=== PATIENT | female | born 2000 | race Caucasian/White ===

== ENCOUNTER 2018-12-05 21:17 | Emergency (ER) | payer SELFPAY ==
[2018-12-05] MEDS ORDERED: Ondansetron 4 MG/2 ML SDV ONE (21:42)
[2018-12-05] MEDS ORDERED: Sodium Chloride 0.9% 1,000 ML IV ONE ×2 (21:45→21:46)
[2018-12-05] MEDS ORDERED: Ondansetron 4 MG/2 ML SDV IVPUSH ONE (21:46)
--- NOTE | 2018-12-05 22:16 | EDM.PDOC ---
ED HPI GENERAL MEDICAL PROBLEM - General Chief Complaint: SHOE WORKER Problem Stated Complaint: VOMITING Time Seen by Provider: 12/05/18 21:39 - History of Present Illness INITIAL COMMENTS - FREE TEXT/NARRATIVE: HISTORY AND PHYSICAL: History of present illness: Patient's a 18-year-old white female with a history of 9 week IUP who presents with concern of vomiting and dehydration patient had hyperemesis gravidarum with earlier and states this is similar in nature she had no vaginal bleeding abdominal pain or cramping or other complaints. Review of systems: As per history of present illness and below otherwise all systems reviewed and negative. Past medical history: As per history of present illness and as reviewed below otherwise noncontributory. Surgical history: As per history of present illness and as reviewed below otherwise noncontributory. Social history: No reported history of drug or alcohol abuse. Family history: As per history of present illness and as reviewed below otherwise noncontributory. Physical exam: HEENT: Atraumatic, normocephalic, pupils reactive, negative for conjunctival pallor or scleral icterus, mucous membranes dry, throat clear, neck supple, nontender, trachea midline. Lungs: Clear to auscultation, breath sounds equal bilaterally, chest nontender. Heart: S1S2, regular, negative for clicks, rubs, or JVD. Abdomen: Soft, nondistended, nontender. Negative for masses or hepatosplenomegaly. Negative for costovertebral tenderness. Pelvis: Stable nontender. Genitourinary: Deferred. Rectal: Deferred. Extremities: Atraumatic, negative for cords or calf pain. Neurovascular unremarkable. Neuro: Awake, alert, oriented. Cranial nerves II through XII unremarkable. Cerebellum unremarkable. Motor and sensory unremarkable throughout. Exam nonfocal. Diagnostics: CBC CMP Therapeutics: Saline 2 L bolus Zofran 4 mg IV Impression: #1 hyperemesis gravidarum with dehydration Definitive disposition and diagnosis as appropriate pending reevaluation and review of above. - Related Data Allergies Allergy/AdvReac Type Severity Reaction Status Date / Time cephalexin [From Keflex] Allergy Syncope Verified 12/05/18 21:28 Home Meds: Home Meds . [No Known Home Meds] 12/05/18 [History] Past Medical History HEENT History: Reports: None Cardiovascular History: Reports: None Respiratory History: Reports: None Gastrointestinal History: Reports: Other (See Below) Other Gastrointestinal History: gastroparesis SHOE WORKER History: Reports: Other SHOE WORKER History: Musculoskeletal History: Reports: Fracture Psychiatric History: Reports: Anxiety, Depression - Past Surgical History GI Surgical History: Reports: Cholecystectomy, Colonoscopy, EGD Social & Family History - Tobacco Use Smoking Status *Q: Never Smoker - Recreational Drug Use Recreational Drug Use: No ED ROS GENERAL - Review of Systems Review Of Systems: ROS reveals no pertinent complaints other than HPI. ED EXAM, GENERAL - Physical Exam Exam: See Below (The dictation) Course - Vital Signs Last Recorded V/S: Last Vital Signs Temp 36.3 C 12/05/18 22:00 Pulse 70 12/05/18 22:34 Resp 18 12/05/18 22:34 BP 104/45 L 12/05/18 22:34 Pulse Ox 100 12/05/18 22:00 - Orders/Labs/Meds Labs: Laboratory Tests 12/05/18 12/05/18 Range/Units 21:40 21:40 WBC 14.18 H (4.0-11.0) K/uL RBC 5.36 (4.30-5.90) M/uL Hgb 16.2 H (12.0-16.0) g/dL Hct 45.0 (36.0-46.0) % MCV 84.0 (80.0-98.0) fL MCH 30.2 (27.0-32.0) pg MCHC 36.0 (31.0-37.0) g/dL RDW Std Deviation 37.8 (28.0-62.0) fl RDW Coeff of Lesley 13 (11.0-15.0) % Plt Count 336 (150-400) K/uL MPV 10.30 (7.40-12.00) fL Neut % (Auto) 65.2 (48.0-80.0) % Lymph % (Auto) 26.2 (16.0-40.0) % [place] % (Auto) 8.2 (0.0-15.0) % Eos % (Auto) 0.1 (0.0-7.0) % Baso % (Auto) 0.3 (0.0-1.5) % Neut # (Auto) 9.3 H (1.4-5.7) K/uL Lymph # (Auto) 3.7 H (0.6-2.4) K/uL [place] # (Auto) 1.2 H (0.0-0.8) K/uL Eos # (Auto) 0.0 (0.0-0.7) K/uL Baso # (Auto) 0.0 (0.0-0.1) K/uL Nucleated RBC % 0.0 /100WBC Nucleated RBCs # 0 K/uL Sodium 135 L (136-145) mmol/L Potassium 3.3 L (3.5-5.1) mmol/L Chloride 100 (98-107) mmol/L Carbon Dioxide 20.9 L (21.0-32.0) mmol/L BUN 8 (7.0-18.0) mg/dL Creatinine 0.7 (0.6-1.0) mg/dL Est Cr Clr Drug Dosing 101.39 mL/min Estimated GFR (MDRD) > 60.0 ml/min Glucose 79 (74-106) mg/dL Calcium 10.1 (8.5-10.1) mg/dL Total Bilirubin 0.5 (0.2-1.0) mg/dL AST 13 L (15-37) IU/L ALT 11 L (14-63) IU/L Alkaline Phosphatase 98 (46-116) U/L Total Protein 8.6 H (6.4-8.2) g/dL Albumin 4.1 (3.4-5.0) g/dL Globulin 4.5 H (2.6-4.0) g/dL Albumin/Globulin Ratio 0.9 (0.9-1.6) Meds: Medications Discontinued Medications Generic Name Dose Route Start Last Admin Trade Name Freq PRN Reason Stop Dose Admin Sodium Chloride 1,000 mls @ 999 mls/hr 12/05/18 21:45 12/05/18 21:50 Normal Saline IV 12/05/18 22:45 999 mls/hr STAT ONE Administration Sodium Chloride 1,000 mls @ 999 mls/hr 12/05/18 21:46 12/05/18 22:32 Normal Saline IV 12/05/18 22:46 999 mls/hr STAT ONE Administration Ondansetron HCl Confirm 12/05/18 21:42 12/05/18 21:57 Zofran Administered 12/05/18 21:43 Not Given Dose 4 mg .ROUTE .STK-MED ONE Ondansetron HCl 4 mg 12/05/18 21:46 12/05/18 21:51 Zofran IVPUSH 12/05/18 21:47 4 mg ONETIME ONE Administration Departure - Departure Time of Disposition: 23:04 Disposition: Home, Self-Care 01 Condition: Good Clinical Impression: Hyperemesis gravidarum, Dehydration - Discharge Information Referrals: PCP,None [Primary Care Provider] - Forms: ED Department Discharge Additional Instructions: The following information is given to patients seen in the emergency department who are being discharged to home. This information is to outline your options for follow-up care. We provide all patients seen in our emergency department with a follow-up referral. The need for follow-up, as well as the timing and circumstances, are variable depending upon the specifics of your emergency department visit. If you don't have a primary care physician on staff, we will provide you with a referral. We always advise you to contact your personal physician following an emergency department visit to inform them of the circumstance of the visit and for follow-up with them and/or the need for any referrals to a consulting specialist. The emergency department will also refer you to a specialist when appropriate. This referral assures that you have the opportunity for followup care with a specialist. All of these measure are taken in an effort to provide you with optimal care, which includes your followup. Under all circumstances we always encourage you to contact your private physician who remains a resource for coordinating your care. When calling for followup care, please make the office aware that this follow-up is from your recent emergency room visit. If for any reason you are refused follow-up, please contact the [facility] emergency department at and asked to speak to the emergency department charge nurse. 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
[2018-12-05 22:34] LABS: CHLORIDE,CL 100 mmol/L (98-107); SODIUM,NA 135 mmol/L (136-145)
== END 2018-12-05 23:45 | disposition home or self-care (01) ==
LOC: MW.ED 21:17
DX: O21.1 Hyperemesis gravidarum with metabolic disturbance (principal); Z3A.09 9 weeks gestation of pregnancy; Z88.1 Allergy status to other antibiotic agents
CPT/HCPCS: 36415; 80053; 85025; 96361; 96374; 99284; J2405; J7040; 99283

== ENCOUNTER 2019-01-20 16:55 | Emergency (ER) | payer MEDICAID ==
[2019-01-20] MEDS ORDERED: Sodium Chloride 0.9% 1,000 ML IV ONE (17:22)
[2019-01-20] MEDS ORDERED: Ondansetron 4 MG/2 ML SDV IVPUSH ONE (17:22)
--- NOTE | 2019-01-20 17:27 | EDM.PDOC ---
ED HPI GENERAL MEDICAL PROBLEM - General Chief Complaint: Abdominal Pain Stated Complaint: VOMITING Time Seen by Provider: 01/20/19 16:56 Source of Information: Reports: Patient History Limitations: Reports: No Limitations - History of Present Illness INITIAL COMMENTS - FREE TEXT/NARRATIVE: HISTORY AND PHYSICAL: History of present illness: Patient is a 18-year-old female who presents to the emergency room with complaints of nausea and vomiting in . She states she is approximately 15 weeks gestation and has had problems with nausea and vomiting. She states she was seen in the emergency room a few weeks ago and given IV fluids and Zofran. She had a prescription for Zofran but had concerns of constipation associated with this. She had a new prescription, but doesn't recall the name of the antinausea medication, nor has she had this medication filled yet. She has had mild nausea which was exacerbated after she had a massage yesterday. Today she had multiple bouts of vomiting and concerned of dehydration. She denies any fever, chills, chest pain, shortness of breath or cough. Denies any abdominal pain, abdominal cramping, vaginal bleeding or discharge. Denies any constipation, diarrhea or dysuria. Last menstrual period November 2018. 2, para 1. Dr. Alvarado is her primary SOCIAL SERVICE WORKER Review of systems: As per history of present illness and below otherwise all systems reviewed and negative. Past medical history: As per history of present illness and as reviewed below otherwise noncontributory. Surgical history: As per history of present illness and as reviewed below otherwise noncontributory. Social history: See social history for further information Family history: As per history of present illness and as reviewed below otherwise noncontributory. Physical exam: General: Well-developed and well-nourished 18-year-old female. Alert and oriented. Nontoxic appearing and in no acute distress. HEENT: Atraumatic, normocephalic, pupils equal and reactive bilaterally, negative for conjunctival pallor or scleral icterus, mucous membranes moist, TMs normal bilaterally, throat clear, neck supple, nontender, trachea midline. No drooling or trismus noted. No meningeal signs. No hot potato voice noted. Lungs: Clear to auscultation, breath sounds equal bilaterally, chest nontender. Heart: S1S2, regular rate and rhythm without overt murmur Abdomen: Soft, nondistended, nontender. Negative for masses or hepatosplenomegaly. Negative for costovertebral tenderness. Pelvis: Stable nontender. Genitourinary: Deferred. Rectal: Deferred. Skin: Intact, warm, dry. No lesions or rashes noted. Extremities: Atraumatic, negative for cords or calf pain. Neurovascular unremarkable. Neuro: Awake, alert, oriented. Cranial nerves II through XII unremarkable. Cerebellum unremarkable. Motor and sensory unremarkable throughout. Exam nonfocal. Notes: No acute findings on lab work. Patient does feel improved after her IV fluids and Zofran. She states she has prescriptions for antinausea medication but has yet filled them or use them at home. Supportive care measures were reviewed and discussed. Voices understanding and is agreeable to plan of care. Denies any further questions or concerns at this time. Diagnostics: CBC, CMP, UA Therapeutics: IV fluid, Zofran Prescription: Macrodantin Impression: Hyperemesis UTI Plan: 1. Small frequent amounts of fluids and small meals throughout the day. 2. Use your Zofran and/or other anti-nausea mediation as needed and as discussed 3. Follow up with Dr Alvarado as needed and as we discussed. 4. Return to the ED as needed and as discussed. Definitive disposition and diagnosis as appropriate pending reevaluation and review of above. Duration: Day(s): no pain Pain Score (Numeric/FACES): 0 - Related Data Allergies Allergy/AdvReac Type Severity Reaction Status Date / Time cephalexin [From Keflex] Allergy Syncope Verified 01/20/19 17:08 Home Meds: Home Meds Nitrofurantoin Macrocrystal [Macrodantin] 100 mg PO BID 7 Days #14 capsule 01/20 [Rx] Rtx429/FA/Omega3/Dha/Fish Oil [ Gummies] 1 tab 01/20/19 [History] Past Medical History HEENT History: Reports: None Cardiovascular History: Reports: None Respiratory History: Reports: None Gastrointestinal History: Reports: Other (See Below) Other Gastrointestinal History: gastroparesis SOCIAL SERVICE WORKER History: Reports: Other SOCIAL SERVICE WORKER History: Musculoskeletal History: Reports: Fracture Neurological History: Reports: None Psychiatric History: Reports: Anxiety, Depression Endocrine/Metabolic History: Reports: None Dermatologic History: Reports: None - Infectious Disease History Infectious Disease History: Reports: None - Past Surgical History GI Surgical History: Reports: Cholecystectomy, Colonoscopy, EGD Social & Family History - Family History Family Medical History: Noncontributory - Tobacco Use Smoking Status *Q: Never Smoker - Recreational Drug Use Recreational Drug Use: No ED ROS GENERAL - Review of Systems Review Of Systems: ROS reveals no pertinent complaints other than HPI. ED EXAM, GI/ABD - Physical Exam Exam: See Below (See dictation) Course - Vital Signs Last Recorded V/S: Last Vital Signs Temp 96.6 F 01/20/19 18:31 Pulse 80 01/20/19 18:31 Resp 14 01/20/19 18:31 BP 104/60 01/20/19 18:31 Pulse Ox 96 01/20/19 18:31 - Orders/Labs/Meds Labs: Laboratory Tests 01/20/19 01/20/19 01/20/19 Range/Units 17:14 17:14 17:15 WBC 13.25 H (4.0-11.0) K/uL RBC 4.81 (4.30-5.90) M/uL Hgb 14.5 (12.0-16.0) g/dL Hct 40.9 (36.0-46.0) % MCV 85.0 (80.0-98.0) fL MCH 30.1 (27.0-32.0) pg MCHC 35.5 (31.0-37.0) g/dL RDW Std Deviation 40.5 (28.0-62.0) fl RDW Coeff of Lesley 13 (11.0-15.0) % Plt Count 283 (150-400) K/uL MPV 10.50 (7.40-12.00) fL Neut % (Auto) 77.9 (48.0-80.0) % Lymph % (Auto) 17.9 (16.0-40.0) % [place] % (Auto) 4.0 (0.0-15.0) % Eos % (Auto) 0.1 (0.0-7.0) % Baso % (Auto) 0.1 (0.0-1.5) % Neut # (Auto) 10.3 H (1.4-5.7) K/uL Lymph # (Auto) 2.4 (0.6-2.4) K/uL [place] # (Auto) 0.5 (0.0-0.8) K/uL Eos # (Auto) 0.0 (0.0-0.7) K/uL Baso # (Auto) 0.0 (0.0-0.1) K/uL Nucleated RBC % 0.0 /100WBC Nucleated RBCs # 0 K/uL Sodium 134 L (136-145) mmol/L Potassium 3.5 (3.5-5.1) mmol/L Chloride 100 (98-107) mmol/L Carbon Dioxide 17.1 L (21.0-32.0) mmol/L BUN 7 (7.0-18.0) mg/dL Creatinine 0.6 (0.6-1.0) mg/dL Est Cr Clr Drug Dosing 118.29 mL/min Estimated GFR (MDRD) > 60.0 ml/min Glucose 82 (74-106) mg/dL Calcium 9.4 (8.5-10.1) mg/dL Total Bilirubin 0.6 (0.2-1.0) mg/dL AST 17 (15-37) IU/L ALT 17 (14-63) IU/L Alkaline Phosphatase 85 (46-116) U/L Total Protein 7.7 (6.4-8.2) g/dL Albumin 3.3 L (3.4-5.0) g/dL Globulin 4.4 H (2.6-4.0) g/dL Albumin/Globulin Ratio 0.8 L (0.9-1.6) Lipase 118 (73-393) U/L Urine Color YELLOW Urine Appearance HAZY Urine pH 6.0 (5.0-8.0) Ur Specific Chauncey >= 1.030 (1.001-1.035) Urine Protein TRACE H (NEGATIVE) mg/dL Urine Glucose (UA) NEGATIVE (NEGATIVE) mg/dL Urine Ketones >=80 (NEGATIVE) mg/dL Urine Occult Blood NEGATIVE (NEGATIVE) Urine Nitrite NEGATIVE (NEGATIVE) Urine Bilirubin SMALL H (NEGATIVE) Urine Urobilinogen 0.2 (<2.0) EU/dL Ur Leukocyte Esterase NEGATIVE (NEGATIVE) Urine RBC 0-2 (0-2/HPF) Urine WBC 2-4 (0-5/HPF) Ur Epithelial Cells MODERATE (NONE-FEW) Urine Bacteria 1+ H (NEGATIVE) Meds: Medications Discontinued Medications Generic Name Dose Route Start Last Admin Trade Name Kye PRN Reason Stop Dose Admin Sodium Chloride 1,000 mls @ 999 mls/hr 01/20/19 17:22 01/20/19 17:34 Normal Saline IV 01/20/19 18:22 999 mls/hr STAT ONE Administration Ondansetron HCl 4 mg 01/20/19 17:22 01/20/19 17:37 Zofran IVPUSH 01/20/19 17:23 4 mg ONETIME ONE Administration Departure - Departure Time of Disposition: 18:46 Disposition: Home, Self-Care 01 Clinical Impression: Hyperemesis gravidarum UTI (urinary tract infection) Qualifiers: Urinary tract infection type: site unspecified Hematuria presence: without hematuria Qualified Code(s): N39.0 - Urinary tract infection, site not specified - Discharge Information Prescriptions: Nitrofurantoin Macrocrystal [Macrodantin] 100 mg PO BID 7 Days #14 capsule Instructions: Hyperemesis Gravidarum, Urinary Tract Infection, Adult, Easy-to- Read Referrals: PCP,None [Primary Care Provider] - Forms: ED Department Discharge Additional Instructions: The following information is given to patients seen in the emergency department who are being discharged to home. This information is to outline your options for follow-up care. We provide all patients seen in our emergency department with a follow-up referral. The need for follow-up, as well as the timing and circumstances, are variable depending upon the specifics of your emergency department visit. If you don't have a primary care physician on staff, we will provide you with a referral. We always advise you to contact your personal physician following an emergency department visit to inform them of the circumstance of the visit and for follow-up with them and/or the need for any referrals to a consulting specialist. The emergency department will also refer you to a specialist when appropriate. This referral assures that you have the opportunity for follow-up care with a specialist. All of these measure are taken in an effort to provide you with optimal care, which includes your follow-up. Under all circumstances we always encourage you to contact your private physician who remains a resource for coordinating your care. When calling for follow-up care, please make the office aware that this follow-up is from your recent emergency room visit. If for any reason you are refused follow-up, please contact the [facility] Emergency Department at and asked to speak to the emergency department charge nurse. [facility] [address], [place] [address] [facility] [address] [place] [id number] [facility] [address] [place] [address] 1. Small frequent amounts of fluids and small meals throughout the day. 2. Use your Zofran and/or other anti-nausea mediation as needed and as discussed 3. Follow up with Dr Alvarado as needed and as we discussed. 4. Return to the ED as needed and as discussed.
[2019-01-20 17:49] LABS: CHLORIDE,CL 100 mmol/L (98-107); SODIUM,NA 134 mmol/L (136-145)
== END 2019-01-20 18:55 | disposition home or self-care (01) ==
LOC: MW.ED 16:55
DX: O23.42 Unspecified infection of urinary tract in pregnancy, second trimester (principal); O21.9 Vomiting of pregnancy, unspecified; Z3A.15 15 weeks gestation of pregnancy
CPT/HCPCS: 36415; 80053; 81001; 83690; 85025; 96361; 96374; 99284; J2405; J7040; 99283

== ENCOUNTER 2019-01-22 12:47 | Emergency (ER) | payer MEDICAID ==
[2019-01-22] MEDS ORDERED: Ondansetron 4 MG/2 ML SDV IVPUSH ONE (12:51)
[2019-01-22] MEDS ORDERED: Sodium Chloride 0.9% 1,000 ML IV ONE (12:51)
--- NOTE | 2019-01-22 12:51 | EDM.PDOC ---
ED HPI GENERAL MEDICAL PROBLEM - General Stated Complaint: VOMITING Time Seen by Provider: 01/22/19 12:51 Source of Information: Reports: Patient History Limitations: Reports: No Limitations - History of Present Illness INITIAL COMMENTS - FREE TEXT/NARRATIVE: HISTORY AND PHYSICAL: History of present illness: Patient is a 18-year-old female who presents to the emergency room with complaints of nausea and vomiting in . She is approximately 15 weeks gestation and has had problems with hyperemesis. She has been seen in the emergency room for this complaint a few times over the past several weeks. She does have a prescription for Zofran that had some concerns of constipation associated with this, therefore did not fill or take this. She also has a new prescription for an antinausea medication, but is unsure of the name of this nor has she filled this prescription yet. Patient was seen in our emergency room for this complaint on 01/20/19. At that time she received IV fluids and Zofran. She states she was surprised she did have a bowel movement after the IV Zofran. She was concerned that she thought the stool appeared dark in color. She denies any fever, chills, chest pain, shortness of breath or cough. She denies any abdominal pain/cramping, vaginal bleeding or discharge. Denies any constipation, diarrhea or dysuria. Last menstrual period November 2018. 2, para 1. Dr. [place] is her primary RIDING COACH. Review of systems: As per history of present illness and below otherwise all systems reviewed and negative. Past medical history: As per history of present illness and as reviewed below otherwise noncontributory. Surgical history: As per history of present illness and as reviewed below otherwise noncontributory. Social history: See social history for further information Family history: As per history of present illness and as reviewed below otherwise noncontributory. Physical exam: General: Well-developed and well-nourished 18-year-old female. Alert and oriented. Nontoxic appearing and in no acute distress. HEENT: Atraumatic, normocephalic, pupils equal and reactive bilaterally, negative for conjunctival pallor or scleral icterus, mucous membranes moist, TMs normal bilaterally, throat clear, neck supple, nontender, trachea midline. No drooling or trismus noted. No meningeal signs. No hot potato voice noted. Lungs: Clear to auscultation, breath sounds equal bilaterally, chest nontender. Heart: S1S2, regular rate and rhythm without overt murmur Abdomen: Soft, nondistended, nontender. Negative for masses or hepatosplenomegaly. Negative for costovertebral tenderness. Pelvis: Stable nontender. Genitourinary: Deferred. Rectal: This was done with consent and a senior geologist at the bedside. No internal or external hemorrhoids noted. Hemoccult negative. Good rectal tone. Skin: Intact, warm, dry. No lesions or rashes noted. Extremities: Atraumatic, negative for cords or calf pain. Neurovascular unremarkable. Neuro: Awake, alert, oriented. Cranial nerves II through XII unremarkable. Cerebellum unremarkable. Motor and sensory unremarkable throughout. Exam nonfocal. Notes: The patient was seen on 01/20/19 she did have a UTI and was prescribed Macrodantin. Patient reports that she hasn't filled this medication because she hasn't gotten around to going to the pharmacy. She also hasn't picked up her nausea mediations that were prescribed for the same reason. Will prescribe these through [facility]. We discussed the need for compliance with these medications. Encouraged her to follow up with her RIDING COACH. Supportive care measures were reviewed and discussed. Voices understanding and is agreeable to plan of care. Denies any further questions or concerns at this time. Diagnostics: CBC, CMP, Hemoccult stool Therapeutics: IV fluid, Zofran Prescription: Zofran Impression: Hyperemesis graviderum Medication non-compliance Plan: 1. Please go to the pharmacy to orange picker machine operator your antibiotic prescription for your UTI. 2. Use the Zofran as directed. May want to start a daily stool softener if youre concerned of constipation. Increase your water intake to prevent dehydration. 3. Follow up with your OBGYN as we discussed 4. Return to the ED as needed and as discussed. Definitive disposition and diagnosis as appropriate pending reevaluation and review of above. Abdomen Pain Score (Numeric/FACES): 6 - Related Data Allergies Allergy/AdvReac Type Severity Reaction Status Date / Time cephalexin [From Keflex] Allergy Syncope Verified 01/22/19 13:03 Home Meds: Home Meds Nitrofurantoin Macrocrystal [Macrodantin] 100 mg PO BID 7 Days #14 capsule 01/20 [Rx] [id number]/FA/Omega3/Dha/Fish Oil [ Gummies] 1 tab 01/20/19 [History] Past Medical History HEENT History: Reports: None Cardiovascular History: Reports: None Respiratory History: Reports: None Gastrointestinal History: Reports: Other (See Below) Other Gastrointestinal History: gastroparesis RIDING COACH History: Reports: Other RIDING COACH History: Musculoskeletal History: Reports: Fracture Neurological History: Reports: None Psychiatric History: Reports: Anxiety, Depression Endocrine/Metabolic History: Reports: None Dermatologic History: Reports: None - Infectious Disease History Infectious Disease History: Reports: None - Past Surgical History GI Surgical History: Reports: Cholecystectomy, Colonoscopy, EGD Social & Family History - Family History Family Medical History: Noncontributory ED ROS GENERAL - Review of Systems Review Of Systems: ROS reveals no pertinent complaints other than HPI. ED EXAM - Physical Exam Exam: See Below (See dictation) Course - Vital Signs Last Recorded V/S: Last Vital Signs Temp 97.7 F 01/22/19 13:04 Pulse 114 H 01/22/19 13:04 Resp 16 01/22/19 13:04 BP 120/80 01/22/19 13:04 Pulse Ox 97 01/22/19 13:04 - Orders/Labs/Meds Orders: Active Orders 24 hr Category Date Time Status Communication Order [RC] STAT Care 01/22/19 12:54 Active Hemoccult [Fecal Occult Blood Collection] [RC] Care 01/22/19 13:18 Active ASDIRECTED Labs: Laboratory Tests 01/22/19 01/22/19 Range/Units 13:01 13:01 WBC 12.91 H (4.0-11.0) K/uL RBC 5.27 (4.30-5.90) M/uL Hgb 15.9 (12.0-16.0) g/dL Hct 44.5 (36.0-46.0) % MCV 84.4 (80.0-98.0) fL MCH 30.2 (27.0-32.0) pg MCHC 35.7 (31.0-37.0) g/dL RDW Std Deviation 40.8 (28.0-62.0) fl RDW Coeff of Lesley 14 (11.0-15.0) % Plt Count 319 (150-400) K/uL MPV 10.50 (7.40-12.00) fL Neut % (Auto) 73.6 (48.0-80.0) % Lymph % (Auto) 20.3 (16.0-40.0) % [place] % (Auto) 5.8 (0.0-15.0) % Eos % (Auto) 0.1 (0.0-7.0) % Baso % (Auto) 0.2 (0.0-1.5) % Neut # (Auto) 9.5 H (1.4-5.7) K/uL Lymph # (Auto) 2.6 H (0.6-2.4) K/uL [place] # (Auto) 0.8 (0.0-0.8) K/uL Eos # (Auto) 0.0 (0.0-0.7) K/uL Baso # (Auto) 0.0 (0.0-0.1) K/uL Nucleated RBC % 0.0 /100WBC Nucleated RBCs # 0 K/uL Sodium 133 L (136-145) mmol/L Potassium 4.0 (3.5-5.1) mmol/L Chloride 100 (98-107) mmol/L Carbon Dioxide 14.8 L (21.0-32.0) mmol/L BUN 5 L (7.0-18.0) mg/dL Creatinine 0.7 (0.6-1.0) mg/dL Est Cr Clr Drug Dosing 101.39 mL/min Estimated GFR (MDRD) > 60.0 ml/min Glucose 76 (74-106) mg/dL Calcium 9.6 (8.5-10.1) mg/dL Total Bilirubin 0.7 (0.2-1.0) mg/dL AST 19 (15-37) IU/L ALT 16 (14-63) IU/L Alkaline Phosphatase 95 (46-116) U/L Total Protein 8.5 H (6.4-8.2) g/dL Albumin 3.7 (3.4-5.0) g/dL Globulin 4.8 H (2.6-4.0) g/dL Albumin/Globulin Ratio 0.8 L (0.9-1.6) Meds: Medications Discontinued Medications Generic Name Dose Route Start Last Admin Trade Name Freq PRN Reason Stop Dose Admin Sodium Chloride 1,000 mls @ 999 mls/hr 01/22/19 12:51 01/22/19 13:19 Normal Saline IV 01/22/19 13:51 999 mls/hr STAT ONE Administration Ondansetron HCl 4 mg 01/22/19 12:51 01/22/19 13:20 Zofran IVPUSH 01/22/19 12:52 4 mg ONETIME ONE Administration Departure - Departure Time of Disposition: 13:45 Disposition: Home, Self-Care 01 Clinical Impression: Hyperemesis gravidarum, Noncompliance with medication regimen - Discharge Information Instructions: Hyperemesis Gravidarum Forms: ED Department Discharge Additional Instructions: The following information is given to patients seen in the emergency department who are being discharged to home. This information is to outline your options for follow-up care. We provide all patients seen in our emergency department with a follow-up referral. The need for follow-up, as well as the timing and circumstances, are variable depending upon the specifics of your emergency department visit. If you don't have a primary care physician on staff, we will provide you with a referral. We always advise you to contact your personal physician following an emergency department visit to inform them of the circumstance of the visit and for follow-up with them and/or the need for any referrals to a consulting specialist. The emergency department will also refer you to a specialist when appropriate. This referral assures that you have the opportunity for follow-up care with a specialist. All of these measure are taken in an effort to provide you with optimal care, which includes your follow-up. Under all circumstances we always encourage you to contact your private physician who remains a resource for coordinating your care. When calling for follow-up care, please make the office aware that this follow-up is from your recent emergency room visit. If for any reason you are refused follow-up, please contact the [facility] at and asked to speak to the emergency department charge nurse. [facility] [address] [place] [id number] [place] [address] [facility] [address] [place] [address] 1. Please use the [facility] prescription to orange picker machine operator your antibiotic prescription for your UTI. 2. Use the Zofran as directed. May want to start a daily stool softener if you' re concerned of constipation. Increase your water intake to prevent dehydration. 3. Follow up with your OBGYN as we discussed 4. Return to the ED as needed and as discussed. - My Orders Last 24 Hours: My Active Orders 01/22/19 12:54 Communication Order [RC] STAT 01/22/19 13:18 Hemoccult [Fecal Occult Blood Collection] [RC] ASDIRECTED - Assessment/Plan Last 24 Hours: My Active Orders 01/22/19 12:54 Communication Order [RC] STAT 01/22/19 13:18 Hemoccult [Fecal Occult Blood Collection] [RC] ASDIRECTED
[2019-01-22 13:47] LABS: CHLORIDE,CL 100 mmol/L (98-107); SODIUM,NA 133 mmol/L (136-145)
== END 2019-01-22 14:25 | disposition home or self-care (01) ==
LOC: MW.ED 12:47
DX: O21.0 Mild hyperemesis gravidarum (principal); Z91.19 Patient's noncompliance with other medical treatment and regimen; Z3A.15 15 weeks gestation of pregnancy
CPT/HCPCS: 36415; 80053; 85025; 96361; 96374; 99284; J2405; J7040; 99283

== ENCOUNTER 2019-07-06 10:36 | Inpatient (IN) | payer MEDICAID ==
[2019-07-06] MEDS ORDERED: Sodium Chloride 0.9% 2.5 ML Syringe FLUSH PRN (10:59)
[2019-07-06] MEDS ORDERED: Lidocaine 1% 50 ML MDV INJECT PRN (10:59)
[2019-07-06] MEDS ORDERED: Water For Irrigation,Sterile 1,000 ML Container IRR PRN (10:59)
[2019-07-06] MEDS ORDERED: Nalbuphine 10 MG/1 ML Vial IVPUSH PRN (10:59)
[2019-07-06] MEDS ORDERED: Tranexamic Acid 1,000 MG in Sodium Chloride 0.9% 100 ML IV PRN (10:59)
[2019-07-06] MEDS ORDERED: Butorphanol 1 MG/ML SDV IVPUSH PRN (10:59)
[2019-07-06] MEDS ORDERED: Carboprost Tromethamine 250 MCG/1 ML Amp IM PRN (10:59)
[2019-07-06] MEDS ORDERED: Sodium Chloride 0.9% 10 ML SDV IV PRN (10:59)
[2019-07-06] MEDS ORDERED: Methylergonovine 0.2 MG/1 ML Amp IM PRN (10:59)
[2019-07-06] MEDS ORDERED: Misoprostol 200 MCG Tab PO PRN (10:59)
[2019-07-06] MEDS ORDERED: Sodium Chloride 0.9% 10 ML Syringe FLUSH PRN (10:59)
[2019-07-06] MEDS ORDERED: Oxytocin/0.9 % Sodium Chloride 30 UNIT/500 ML BAG IV SCH ×2 (11:00→12:45)
[2019-07-06] MEDS ORDERED: Lactated Ringers 1,000 ML IV SCH (11:00)
[2019-07-06] MEDS ORDERED: fentaNYL 100 MCG/2 ML SDV ONE (15:57)
[2019-07-06] MEDS ORDERED: Ropivacaine 0.2% 2 MG/ML 20 ML SDV ONE (15:58)
--- NOTE | 2019-07-06 16:19 | PCM.PREANE ---
Preanesthetic Assessment - Anesthesia/Transfusion/Family Hx Anesthesia History: Prior Anesthesia Without Reaction Family History of Anesthesia Reaction: Yes Transfusion History: No Prior Transfusion(s) - Review of Systems General: No Symptoms Pulmonary: No Symptoms Cardiovascular: No Symptoms Gastrointestinal: No Symptoms Neurological: No Symptoms Other: Reports: None - Physical Assessment Height: 5 ft 2 in Weight: 91.626 kg ASA Class: 2 Mental Status: Alert & Oriented x3 Airway Class: Mallampati = 2 Dentition: Reports: Normal Dentition ROM/Head Extension: Full Lungs: Clear to Auscultation, Normal Respiratory Effort Cardiovascular: Regular Rate, Regular Rhythm - Lab Values: Laboratory Last Values WBC 16.33 K/uL (4.0-11.0) H 07/06/19 11:17 RBC 4.75 M/uL (4.30-5.90) 07/06/19 11:17 Hgb 13.4 g/dL (12.0-16.0) 07/06/19 11:17 Hct 40.8 % (36.0-46.0) 07/06/19 11:17 MCV 85.9 fL (80.0-98.0) 07/06/19 11:17 MCH 28.2 pg (27.0-32.0) 07/06/19 11:17 MCHC 32.8 g/dL (31.0-37.0) 07/06/19 11:17 RDW Std Deviation 44.6 fl (28.0-62.0) 07/06/19 11:17 RDW Coeff of Lesley 14 % (11.0-15.0) 07/06/19 11:17 Plt Count 225 K/uL (150-400) 07/06/19 11:17 MPV 11.80 fL (7.40-12.00) 07/06/19 11:17 Nucleated RBC % 0.0 /100WBC 07/06/19 11:17 Nucleated RBCs # 0 K/uL 07/06/19 11:17 Blood Type A POSITIVE 07/06/19 11:17 Antibody Screen NEGATIVE 07/06/19 11:17 - Allergies Allergies/Adverse Reactions: Allergies Allergy/AdvReac Type Severity Reaction Status Date / Time cephalexin [From Keflex] Allergy Syncope Verified 07/06/19 10:58 - Blood Blood Available: No - Acknowledgements Anesthesia Type Planned: Epidural Pt an Appropriate Candidate for the Planned Anesthesia: Yes Alternatives and Risks of Anesthesia Discussed w Pt/Guardian: Yes Pt/Guardian Understands and Agrees with Anesthesia Plan: Yes Additional Comments: successful placement on first attempt. no blood csf or paresthesia, good analgesia setting in but pt now complete with only a small cervical rim. Infusion started. PreAnesthesia Questionnaire HEENT History: Reports: None Cardiovascular History: Reports: None Respiratory History: Reports: None Gastrointestinal History: Reports: None Other Gastrointestinal History: gastroparesis HOTEL MANAGER History: Reports: Other OB/BYN History: Musculoskeletal History: Reports: Fracture Neurological History: Reports: None Psychiatric History: Reports: Anxiety, Depression Endocrine/Metabolic History: Reports: None Dermatologic History: Reports: None - Infectious Disease History Infectious Disease History: Reports: None - Past Surgical History GI Surgical History: Reports: Cholecystectomy, Colonoscopy, EGD - SUBSTANCE USE Smoking Status *Q: Never Smoker Recreational Drug Use History: No - HOME MEDS Home Medications: Home Meds [id number]/FA/Omega3/Dha/Fish Oil [ Gummies] 1 tab PO DAILY 01/20/19 [ History] - CURRENT (IN HOUSE) MEDS Current Meds: Current Medications Butorphanol Tartrate (Stadol) 1 mg IVPUSH Q1H PRN PRN Reason: Pain Last Admin: 07/06/19 14:27 Dose: 1 mg Carboprost Tromethamine (Hemabate Ds) 250 mcg IM ASDIRECTED PRN PRN Reason: Post Hemorrhage Lactated Ringer's (Ringers, Lactated) 1,000 mls @ 150 mls/hr IV ASDIRECTED MARYANN Last Admin: 07/06/19 14:36 Dose: 150 mls/hr Oxytocin/Sodium Chloride (Oxytocin 30 Unit/500 Ml-Ns) 30 unit in 500 mls @ 999 mls/hr IV TITRATE MARYANN Tranexamic Acid 1,000 mg/ (Sodium Chloride) 110 mls @ 660 mls/hr IV ONETIME PRN PRN Reason: Bleeding Oxytocin/Sodium Chloride (Oxytocin 30 Unit/500 Ml-Ns) 30 unit in 500 mls @ 2 mls/hr IV TITRATE MARYANN; Protocol Last Infusion: 07/06/19 14:06 Dose: 6 munits/min, 6 mls/hr Lidocaine HCl (Xylocaine 1%) 50 ml INJECT ONETIME PRN PRN Reason: Laceration repair Methylergonovine Maleate (Methergine) 0.2 mg IM ASDIRECTED PRN PRN Reason: Post Hemorrhage Misoprostol (Cytotec) 200 mcg PO ONETIME PRN PRN Reason: Post Hemorrhage Nalbuphine HCl (Nubain) 10 mg IVPUSH Q1H PRN PRN Reason: Pain (severe 7-10) Sodium Chloride (Saline Flush) 10 ml FLUSH ASDIRECTED PRN PRN Reason: Keep Vein Open Sodium Chloride (Saline Flush) 2.5 ml FLUSH ASDIRECTED PRN PRN Reason: Keep Vein Open Sodium Chloride (Normal Saline) 10 ml IV ASDIRECTED PRN PRN Reason: IV Use Sterile Water (Sterile Water For Irrigation) 1,000 ml IRR ASDIRECTED PRN PRN Reason: delivery Discontinued Medications Fentanyl (Sublimaze) Confirm Administered Dose 100 mcg .ROUTE .STK-MED ONE Stop: 07/06/19 15:58 Fentanyl/Bupivacaine HCl (Kdbmufnk-Lewvy-Rk 2 Mcg/Ml-0.125%) Confirm Administered Dose 100 mls @ as directed .ROUTE .STK-MED ONE Stop: 07/06/19 15:58 Ropivacaine (Naropin 0.2%) Confirm Administered Dose 20 ml .ROUTE .STK-MED ONE Stop: 07/06/19 15:59
--- NOTE | 2019-07-06 16:51 | PCM.OPNOTE ---
- General Post-Op/Procedure Note Date of Surgery/Procedure: 07/06/19 Operative Procedure(s): Findings: of liveborn male . Weight 3180. Apgars 8/9. 3vc. Placenta intact. Pre Op Diagnosis: 38/4 IUP SROM in labor Post-Op Diagnosis: same Anesthesia Technique: Epidural Primary Surgeon: Ryanne Hernandes Pai Gow Dealer: Lexi Andrea Role of Pai Gow Dealer: 4th year medical student EBL in mLs: 200 Condition: Good
[2019-07-06] MEDS ORDERED: Witch Hazel Medicated Pads 40/Jar TOP PRN (16:53)
[2019-07-06] MEDS ORDERED: Docusate Sodium 100 MG Cap PO PRN (16:53)
[2019-07-06] MEDS ORDERED: oxyCODONE 5 MG Tab PO PRN (16:53)
[2019-07-06] MEDS ORDERED: Ibuprofen 400 MG Tab PO PRN (16:53)
[2019-07-06] MEDS ORDERED: Bisacodyl 10 MG Supp RECTAL PRN (16:53)
[2019-07-06] MEDS ORDERED: Lanolin 100% Cream 7 GM Tube TOP PRN (16:53)
[2019-07-06] MEDS ORDERED: Ibuprofen 800 MG Tab PO PRN (16:53)
[2019-07-06] MEDS ORDERED: Benzocaine/Menthol 20%-0.5% Spray 78 GM Cannister TOP PRN (16:53)
[2019-07-06] MEDS ORDERED: Acetaminophen 500 MG Tab PO PRN ×2 (16:53)
--- NOTE | 2019-07-06 18:07 | OR ---
SURGEON: Ryanne Hernandes M.D. DATE OF PROCEDURE: 07/06/2019 PREOPERATIVE DIAGNOSES: 38-4/7 weeks' intrauterine , spontaneous rupture of membranes with induction of labor. POSTOPERATIVE DIAGNOSES: 38-4/7 weeks' intrauterine , spontaneous rupture of membranes with induction of labor. PROCEDURES: Pitocin induction of labor, term spontaneous vaginal delivery. PRIMARY SURGEON: Ryanne Hernandes MD. BI ANALYST: GIA Dixon. ANESTHESIA: Epidural. ESTIMATED BLOOD LOSS: Less than 200 mL. FINDINGS: Liveborn male. scores 8 and 9, weighing 3180 g. Placenta spontaneous, Schultze intact, with 3 vessels. Perineum intact. COMPLICATIONS: None known. DISPOSITION: Mother and baby are in LDR in good condition. BRIEF HISTORY: This is a 19-year-old female, G2, P 1-0-0-1. She presents at 38-4/7 weeks' gestation at approximately 12:30 a.m. She presented to Labor and Delivery with what she thought was leakage of fluid. She had negative AmniSure. She reported that the discharge appeared green. She was told to follow up in the clinic. In the clinic, she was seen and the discharge was meconium-stained amniotic fluid. Incidentally, AmniSure was repeated and it remained negative. However, she was clearly grossly ruptured with copious flow of meconium-stained amniotic fluid and then she was sent to Labor and Delivery. She had not changed since she was previously checked on Labor and Delivery the night before, and therefore at 12 hours status post rupture, she was started on Pitocin, and she had category 1 heart tones. She received an epidural for pain control. She progressed to complete. DESCRIPTION OF PROCEDURE: With the patient in dorsal lithotomy position, under adequate epidural analgesia, the patient pushed over a 5-minute time period to a 5+ station at which time the head was delivered spontaneously and atraumatically over the perineum with support with subsequent delivery of the infant's shoulders and body without any difficulty. The was bulb suctioned by nose and mouth. Cord was clamped x2 and cut, and the infant was handed to the mother in the presence of nurse attending delivery. The infant was a liveborn male, score 8 and 9, weighing 3180 g. Cord blood was collected for cord ABGs as well as routine cord blood sampling. Pitocin was initiated after delivery of the infant to assist with delivery of the placenta which was delivered spontaneously, Schultze intact, with 3 vessels. Upon inspection of the pelvis and perineum, there were no periurethral, vaginal sidewall, cervical, rectal, or perineal lacerations. EBL was less than 200 mL. There were no known complications. Mother and baby are in the LDR in good condition. KAYLEN / BRAD /[id number]
--- NOTE | 2019-07-07 07:00 | PCM.PNPP ---
<Lexi Andrea - Last Filed: 07/07/19 06:58> - General Info Date of Service: 07/07/19 Functional Status: Reports: Pain Controlled, Tolerating Diet, Ambulating, Urinating - Review of Systems General: Reports: No Symptoms. Denies: Fever, Chills HEENT: Reports: No Symptoms. Denies: Headaches Pulmonary: Reports: No Symptoms. Denies: Shortness of Breath Cardiovascular: Reports: No Symptoms. Denies: Chest Pain, Palpitations Gastrointestinal: Reports: No Symptoms. Denies: Abdominal Pain Genitourinary: Reports: No Symptoms. Denies: Dysuria Musculoskeletal: Reports: No Symptoms Skin: Reports: No Symptoms Neurological: Reports: No Symptoms Psychiatric: Reports: No Symptoms - General Info Date of Service: 07/07/19 - Patient Data Vital Signs - Most Recent: Last Vital Signs Temp 97.9 F 07/07/19 04:53 Pulse 94 07/07/19 04:53 Resp 16 07/07/19 04:53 BP 116/64 07/07/19 04:53 Pulse Ox 97 07/07/19 04:53 Weight - Most Recent: 91.626 kg Lab Results - Last 24 Hours: Laboratory Results - last 24 hr 07/06/19 07/06/19 07/06/19 Range/Units 11:17 11:17 16:40 WBC 16.33 H (4.0-11.0) K/uL RBC 4.75 (4.30-5.90) M/uL Hgb 13.4 (12.0-16.0) g/dL Hct 40.8 (36.0-46.0) % MCV 85.9 (80.0-98.0) fL MCH 28.2 (27.0-32.0) pg MCHC 32.8 (31.0-37.0) g/dL RDW Std Deviation 44.6 (28.0-62.0) fl RDW Coeff of Lesley 14 (11.0-15.0) % Plt Count 225 (150-400) K/uL MPV 11.80 (7.40-12.00) fL Nucleated RBC % 0.0 /100WBC Nucleated RBCs # 0 K/uL Cord ABG pH 7.275 (7.18-7.38) Cord ABG Base Excess -4 (-10--2) Cord VBG pH 7.344 (7.25-7.45) Cord VBG Base Excess -6 (-10--2) Blood Type A POSITIVE Antibody Screen NEGATIVE 07/07/19 Range/Units 06:20 WBC (4.0-11.0) K/uL RBC (4.30-5.90) M/uL Hgb 12.2 (12.0-16.0) g/dL Hct 37.4 (36.0-46.0) % MCV (80.0-98.0) fL MCH (27.0-32.0) pg MCHC (31.0-37.0) g/dL RDW Std Deviation (28.0-62.0) fl RDW Coeff of Lesley (11.0-15.0) % Plt Count (150-400) K/uL MPV (7.40-12.00) fL Nucleated RBC % /100WBC Nucleated RBCs # K/uL Cord ABG pH (7.18-7.38) Cord ABG Base Excess (-10--2) Cord VBG pH (7.25-7.45) Cord VBG Base Excess (-10--2) Blood Type Antibody Screen Med Orders - Current: Current Medications Acetaminophen (Tylenol Extra Strength) 500 mg PO Q4H PRN PRN Reason: Pain Acetaminophen (Tylenol Extra Strength) 1,000 mg PO Q4H PRN PRN Reason: Pain Benzocaine/Menthol (Dermoplast Pain Relief 20%-0.5% [place]) 78 gm TOP ASDIRECTED PRN PRN Reason: Perineal Comfort Measure Bisacodyl (Dulcolax) 10 mg RECTAL ONETIME PRN PRN Reason: Constipation Docusate Sodium (Colace) 100 mg PO BID PRN PRN Reason: Constipation Emollient Ointment (Lansinoh Hpa) 0 gm TOP ASDIRECTED PRN PRN Reason: Sore Nipples Ibuprofen (Motrin) 400 mg PO Q4H PRN PRN Reason: Pain Ibuprofen (Motrin) 800 mg PO Q6H PRN PRN Reason: Pain Oxycodone HCl (Oxycodone) 5 mg PO Q2H PRN PRN Reason: Pain Witch Lashawn (Tucks) 1 pad TOP ASDIRECTED PRN PRN Reason: comfort care Discontinued Medications Butorphanol Tartrate (Stadol) 1 mg IVPUSH Q1H PRN PRN Reason: Pain Last Admin: 07/06/19 14:27 Dose: 1 mg Carboprost Tromethamine (Hemabate Ds) 250 mcg IM ASDIRECTED PRN PRN Reason: Post Hemorrhage Fentanyl (Sublimaze) Confirm Administered Dose 100 mcg .ROUTE .legalPAD-[employer] ONE Stop: 07/06/19 15:58 Last Admin: 07/06/19 17:28 Dose: Not Given Lactated Ringer's (Ringers, Lactated) 1,000 mls @ 150 mls/hr IV ASDIRECTED MARYANN Last Admin: 07/06/19 14:36 Dose: 150 mls/hr Oxytocin/Sodium Chloride (Oxytocin 30 Unit/500 Ml-Ns) 30 unit in 500 mls @ 999 mls/hr IV TITRATE MARYANN Tranexamic Acid 1,000 mg/ (Sodium Chloride) 110 mls @ 660 mls/hr IV ONETIME PRN PRN Reason: Bleeding Oxytocin/Sodium Chloride (Oxytocin 30 Unit/500 Ml-Ns) 30 unit in 500 mls @ 2 mls/hr IV TITRATE MARYANN; Protocol Last Infusion: 07/06/19 16:42 Dose: 999 mls/hr Fentanyl/Bupivacaine HCl ([id number]-Ywvcp-Zh 2 Mcg/Ml-0.125%) Confirm Administered Dose 100 mls @ as directed .ROUTE .Cinemacraft ONE Stop: 07/06/19 15:58 Last Admin: 07/06/19 17:28 Dose: Not Given Lidocaine HCl (Xylocaine 1%) 50 ml INJECT ONETIME PRN PRN Reason: Laceration repair Methylergonovine Maleate (Methergine) 0.2 mg IM ASDIRECTED PRN PRN Reason: Post Hemorrhage Misoprostol (Cytotec) 200 mcg PO ONETIME PRN PRN Reason: Post Hemorrhage Nalbuphine HCl (Nubain) 10 mg IVPUSH Q1H PRN PRN Reason: Pain (severe 7-10) Ropivacaine (Naropin 0.2%) Confirm Administered Dose 20 ml .ROUTE .legalPAD-Blog Talk Radio ONE Stop: 07/06/19 15:59 Last Admin: 07/06/19 17:28 Dose: Not Given Sodium Chloride (Saline Flush) 10 ml FLUSH ASDIRECTED PRN PRN Reason: Keep Vein Open Sodium Chloride (Saline Flush) 2.5 ml FLUSH ASDIRECTED PRN PRN Reason: Keep Vein Open Sodium Chloride (Normal Saline) 10 ml IV ASDIRECTED PRN PRN Reason: IV Use Sterile Water (Sterile Water For Irrigation) 1,000 ml IRR ASDIRECTED PRN PRN Reason: delivery Last Admin: 07/06/19 17:09 Dose: 1,000 ml - Interaction Infant Disposition, : [place] in Room with Family Infant Interaction: Unable to Hold Infant at this Time Infant Feeding: Breastfed Infant; Nursed Well Support Person: Significant Other - Recovery Exam Fundal Tone: Firm Fundal Level: 1 Fingerbreadths Below Umbilicus Fundal Placement: Midline Lochia Amount: Scant Lochia Color: Rubra/Red Perineum Description: Intact, Minimal Bruising/Swelling Episiotomy/Laceration: None Bladder Status: Nonpalpable, Voiding - Exam General: Alert, Oriented HEENT: Pupils Equal Neck: Supple Lungs: Clear to Auscultation, Normal Respiratory Effort Cardiovascular: Regular Rate, Regular Rhythm GI/Abdominal Exam: Normal Bowel Sounds, Soft, Non-Tender, No Organomegaly, No Distention, No Abnormal Bruit, No Mass, Pelvis Stable Extremities: Normal Inspection, Normal Range of Motion, Non-Tender, No Pedal Edema, Normal Capillary Refill Skin: Warm, Dry, Intact Neurological: No New Focal Deficit Psy/Mental Status: Alert, Normal Affect, Normal Mood - Problem List & Annotations (1) Vaginal delivery SNOMED Code(s): 462031050 Code(s): O80 - ENCOUNTER FOR FULL-TERM UNCOMPLICATED DELIVERY Status: Acute Current Visit: Yes - Problem List Review Problem List Initiated/Reviewed/Updated: Yes - Assessment Assessment:: PPD1 s/p without tears well Pain well controlled Minimal lochia rubra - Plan Plan:: Regular diet Pain control PRN Routine cares Anticipate discharge PPD1-2 <Latonia Alvarado - Last Filed: 07/07/19 11:13> - Patient Data Vital Signs - Most Recent: Last Vital Signs Temp 36.6 C 07/07/19 07:50 Pulse 90 07/07/19 07:50 Resp 16 07/07/19 07:50 BP 112/52 L 07/07/19 07:50 Pulse Ox 97 08/23/19 07:50 Lab Results - Last 24 Hours: Laboratory Results - last 24 hr 07/06/19 07/06/19 07/06/19 Range/Units 11:17 11:17 16:40 WBC 16.33 H (4.0-11.0) K/uL RBC 4.75 (4.30-5.90) M/uL Hgb 13.4 (12.0-16.0) g/dL Hct 40.8 (36.0-46.0) % MCV 85.9 (80.0-98.0) fL MCH 28.2 (27.0-32.0) pg MCHC 32.8 (31.0-37.0) g/dL RDW Std Deviation 44.6 (28.0-62.0) fl RDW Coeff of Lesley 14 (11.0-15.0) % Plt Count 225 (150-400) K/uL MPV 11.80 (7.40-12.00) fL Nucleated RBC % 0.0 /100WBC Nucleated RBCs # 0 K/uL Cord ABG pH 7.275 (7.18-7.38) Cord ABG Base Excess -4 (-10--2) Cord VBG pH 7.344 (7.25-7.45) Cord VBG Base Excess -6 (-10--2) Blood Type A POSITIVE Antibody Screen NEGATIVE 07/07/19 Range/Units 06:20 WBC (4.0-11.0) K/uL RBC (4.30-5.90) M/uL Hgb 12.2 (12.0-16.0) g/dL Hct 37.4 (36.0-46.0) % MCV (80.0-98.0) fL MCH (27.0-32.0) pg MCHC (31.0-37.0) g/dL RDW Std Deviation (28.0-62.0) fl RDW Coeff of Lesley (11.0-15.0) % Plt Count (150-400) K/uL MPV (7.40-12.00) fL Nucleated RBC % /100WBC Nucleated RBCs # K/uL Cord ABG pH (7.18-7.38) Cord ABG Base Excess (-10--2) Cord VBG pH (7.25-7.45) Cord VBG Base Excess (-10--2) Blood Type Antibody Screen Med Orders - Current: Current Medications Acetaminophen (Tylenol Extra Strength) 500 mg PO Q4H PRN PRN Reason: Pain Acetaminophen (Tylenol Extra Strength) 1,000 mg PO Q4H PRN PRN Reason: Pain Last Admin: 07/07/19 09:15 Dose: 1,000 mg Benzocaine/Menthol (Dermoplast Pain Relief 20%-0.5% [place]) 78 gm TOP ASDIRECTED PRN PRN Reason: Perineal Comfort Measure Bisacodyl (Dulcolax) 10 mg RECTAL ONETIME PRN PRN Reason: Constipation Docusate Sodium (Colace) 100 mg PO BID PRN PRN Reason: Constipation Emollient Ointment (Lansinoh Hpa) 0 gm TOP ASDIRECTED PRN PRN Reason: Sore Nipples Ibuprofen (Motrin) 400 mg PO Q4H PRN PRN Reason: Pain Ibuprofen (Motrin) 800 mg PO Q6H PRN PRN Reason: Pain Oxycodone HCl (Oxycodone) 5 mg PO Q2H PRN PRN Reason: Pain Witch Lashawn (Tucks) 1 pad TOP ASDIRECTED PRN PRN Reason: comfort care Discontinued Medications Butorphanol Tartrate (Stadol) 1 mg IVPUSH Q1H PRN PRN Reason: Pain Last Admin: 07/06/19 14:27 Dose: 1 mg Carboprost Tromethamine (Hemabate Ds) 250 mcg IM ASDIRECTED PRN PRN Reason: Post Hemorrhage Fentanyl (Sublimaze) Confirm Administered Dose 100 mcg .ROUTE .STK-MED ONE Stop: 07/06/19 15:58 Last Admin: 07/06/19 17:28 Dose: Not Given Lactated Ringer's (Ringers, Lactated) 1,000 mls @ 150 mls/hr IV ASDIRECTED [facility] Last Admin: 07/06/19 14:36 Dose: 150 mls/hr Oxytocin/Sodium Chloride (Oxytocin 30 Unit/500 Ml-Ns) 30 unit in 500 mls @ 999 mls/hr IV TITRATE MARYANN Tranexamic Acid 1,000 mg/ (Sodium Chloride) 110 mls @ 660 mls/hr IV ONETIME PRN PRN Reason: Bleeding Oxytocin/Sodium Chloride (Oxytocin 30 Unit/500 Ml-Ns) 30 unit in 500 mls @ 2 mls/hr IV TITRATE MARYANN; Protocol Last Infusion: 07/06/19 16:42 Dose: 999 mls/hr Fentanyl/Bupivacaine HCl (Pnfjrspa-Urhrt-Pe 2 Mcg/Ml-0.125%) Confirm Administered Dose 100 mls @ as directed .ROUTE .Cinemacraft ONE Stop: 07/06/19 15:58 Last Admin: 07/06/19 17:28 Dose: Not Given Lidocaine HCl (Xylocaine 1%) 50 ml INJECT ONETIME PRN PRN Reason: Laceration repair Methylergonovine Maleate (Methergine) 0.2 mg IM ASDIRECTED PRN PRN Reason: Post Hemorrhage Misoprostol (Cytotec) 200 mcg PO ONETIME PRN PRN Reason: Post Hemorrhage Nalbuphine HCl (Nubain) 10 mg IVPUSH Q1H PRN PRN Reason: Pain (severe 7-10) Ropivacaine (Naropin 0.2%) Confirm Administered Dose 20 ml .ROUTE .Cinemacraft ONE Stop: 07/06/19 15:59 Last Admin: 07/06/19 17:28 Dose: Not Given Sodium Chloride (Saline Flush) 10 ml FLUSH ASDIRECTED PRN PRN Reason: Keep Vein Open Sodium Chloride (Saline Flush) 2.5 ml FLUSH ASDIRECTED PRN PRN Reason: Keep Vein Open Sodium Chloride (Normal Saline) 10 ml IV ASDIRECTED PRN PRN Reason: IV Use Sterile Water (Sterile Water For Irrigation) 1,000 ml IRR ASDIRECTED PRN PRN Reason: delivery Last Admin: 07/06/19 17:09 Dose: 1,000 ml - Plan Plan:: Patient seen and examined--agree with above. Discharge to home today. Discharge instructions reviewed. Follow up at [facility] 6 weeks. Infection and bleeding warnings reviewed.
--- NOTE | 2019-07-07 08:44 | PCM48HPAN ---
Post Anesthesia Note - EVALUATION WITHIN 48HRS OF ANESTHETIC Vital Signs in Normal Range: Yes Patient Participated in Evaluation: Yes Respiratory Function Stable: Yes Airway Patent: Yes Cardiovascular Function Stable: Yes Hydration Status Stable: Yes Pain Control Satisfactory: Yes Nausea and Vomiting Control Satisfactory: Yes Mental Status Recovered: Yes Vital Signs: Last Vital Signs Temp 36.6 C 07/07/19 07:50 Pulse 90 07/07/19 07:50 Resp 16 07/07/19 07:50 BP 112/52 L 07/07/19 07:50 Pulse Ox 97 07/07/19 07:50 - COMMENTS/OBSERVATIONS Free Text/Narrative:: Patient resting in bed. Denies any complications related to anesthesia/epidural.
== END 2019-07-07 19:25 | disposition home or self-care (01) | DRG 807 ==
LOC: MW.OB 10:36
PROVIDERS: ADMIT Obstetrics & Gynecology; ATTEND Obstetrics & Gynecology
PROC: 10E0XZZ Delivery of Products of Conception, External Approach (ICD-10-PCS; principal; 2019-07-06)
PROC: 3E033VJ Introduction of Other Hormone into Peripheral Vein, Percutaneous Approach (ICD-10-PCS; 2019-07-06)
DX: O77.0 Labor and delivery complicated by meconium in amniotic fluid (principal); Z37.0 Single live birth; Z88.1 Allergy status to other antibiotic agents; Z3A.38 38 weeks gestation of pregnancy
CPT/HCPCS: 36415; 59025; 59409; 82803; 85014; 85018; 85027; 86850; 86900; 86901; A9270-GY; J0595; J2590; J2795; J3010; J7120